=== PATIENT | female | born 1995 | race Caucasian/White ===

== ENCOUNTER 2019-10-03 16:18 | Observation (INO) | payer OTHER, SELFPAY ==
[2019-10-03 17:00] VITALS: BP 103/65; PULSE 64
[2019-10-03 17:15] VITALS: BP 101/63; PULSE 76
[2019-10-03 17:31] VITALS: BP 108/62; PULSE 70
[2019-10-03 17:45] VITALS: BP 102/71; PULSE 68
[2019-10-03 18:01] VITALS: BP 97/60; PULSE 53
[2019-10-03 18:27] VITALS: BMI 26.9
--- NOTE | 2019-10-10 10:00 | PM.OBTRLD ---
OB - Triage/Final Diagnosis Final Diagnosis (1) uterine contractions in second trimester, antepartum: Code(s): O47.02 - False labor before 37 completed weeks of gestation, second trimester Status: Acute
== END 2019-10-03 18:05 | disposition home or self-care (01) ==
PROVIDERS: Admitting Provider Obstetrics & Gynecology; Visit Provider Obstetrics & Gynecology
DX: O47.03 False labor before 37 completed weeks of gestation, third trimester (principal); Z3A.29 29 weeks gestation of pregnancy
CPT/HCPCS: G0378; G0379

== ENCOUNTER 2019-10-17 11:20 | Observation (INO) | payer OTHER, SELFPAY ==
[2019-10-17 11:45] VITALS: BP 103/61; PULSE 64
[2019-10-17 12:00] VITALS: BP 107/69; PULSE 69
[2019-10-17 12:15] VITALS: BP 105/67; PULSE 70
--- NOTE | 2019-10-17 12:29 | PM.OBTRLD ---
OB - Triage/Final Diagnosis Evaluation Baseline heart rate: 140 Variability: Average (6-10) monitor accelerations: Present monitor decelerations: None Vital signs: Vital Signs - 24 hr 10/17/19 11:45 10/17/19 12:00 10/17/19 12:15 Pulse Rate 64 69 70 Blood Pressure 103/61 107/69 105/67 Final Diagnosis (1) uterine contractions in second trimester, antepartum: Code(s): O47.02 - False labor before 37 completed weeks of gestation, second trimester Status: Acute Plan: no contractions noted on TOCO; and pt reports they have subsided. Will avoid manipulating cervix (known to be 2/L/OOP, ~ 2-4wks ago), no discharge, bleeding, or vaginal pressure. Pt once again counseled on importance of PO hydration and avoiding sexual intercourse.
[2019-10-17 12:30] VITALS: BP 104/65; PULSE 63
--- NOTE | 2019-10-17 12:31 | PC.NURSE ---
Dr Thibodeaux notified of adm c/o contractions at 31 weeks and no contractions noted on monitor and that patient feels like they have went away. OK to dc home.
[2019-10-17 12:45] VITALS: BP 110/59; PULSE 68
[2019-10-17 12:48] VITALS: BMI 26.9
== END 2019-10-17 12:50 | disposition home or self-care (01) ==
PROVIDERS: Admitting Provider Obstetrics & Gynecology; Visit Provider Obstetrics & Gynecology
DX: O60.03 Preterm labor without delivery, third trimester (principal); Z3A.31 31 weeks gestation of pregnancy
CPT/HCPCS: G0378; G0379

== ENCOUNTER 2019-11-10 16:16 | Outpatient (RCR) | payer OTHER, SELFPAY ==
--- NOTE | ~2019-11-10 | US_ITS ---
EXAMINATION: US OB limited w BPP DATE: 11/10/2019 17:37 INDICATION: Increased heart rate in office. Third trimester. TECHNIQUE: Real-time pelvic ultrasound was performed. COMPARISON: None. FINDINGS: There is a single living fetus in vertex presentation. The placenta is posterior. heart rate i s 138 beats per minute (bpm). The amniotic fluid index is 24.3 cm, which is normal. Biophysical profile performed by the technologist: breathing (30 sec sustained breathing in 30 minutes): 2 out of 2 movement (3 gross body movements in 30 minutes): 2 out of 2 tone (one episode of xjewgid-bqcwgnwqt-mpjbycp limb movement): 2 out of 2 Amniotic fluid pocket (2 cm): 2 out of 2 Total score: 8 out of 8 IMPRESSION: 1. Single living fetus in vertex presentation. 2. Biophysical profile 8 out of 8. Reviewed, dictated and finalized at location A.
[2019-11-10 18:01] VITALS: BP 106/66; PULSE 98
== END 2019-12-15 07:41 | disposition home or self-care (01) ==
LOC: ANHOBOP 16:16
PROVIDERS: Visit Provider Obstetrics & Gynecology
DX: O36.8330 Maternal care for abnormalities of the fetal heart rate or rhythm, third trimester, not applicable or unspecified (principal); Z3A.34 34 weeks gestation of pregnancy
CPT/HCPCS: 59025; 76815; 76819

== ENCOUNTER 2019-11-28 10:03 | Outpatient (CLI) | payer OTHER, SELFPAY ==
[2019-11-28 10:25] VITALS: BMI 27.6
--- NOTE | 2019-11-28 10:51 | OBADM ---
This patient, Luh Clarke, admitted to the OB room Labor/Delivery/Recovery 106 for rule out rupture of membranes. Patient oriented to hospital policies and general routines including ID bracelet, bed and alarms, visiting hours, pain management, procedures, bathroom and other care routines, personal items, smoking policy, room service/diet, call light, and visiting hours. Patient is encouraged to report perceived risks to care and to ask questions if she does not understand what she is told or what she should do.
[2019-11-28 11:01] VITALS: BP 103/67; PULSE 69
--- NOTE | 2019-11-28 11:31 | P.PNOB_ITS ---
OB - Triage/Final Diagnosis Evaluation Vital signs: Vital Signs - 24 hr 11/28/19 11:01 Pulse Rate 69 Blood Pressure 103/67 Final Diagnosis (1) Vaginal discharge during : Qualifiers: Trimester: third trimester Qualified Code(s): O26.893 - Other specified related conditions, third trimester; N89.8 - Other specified sweetie nflammatory disorders of vagina Code(s): O26.899 - Other specified related conditions, unspecified trimester; N89.8 - Other specified noninflammatory disorders of vagina Status: Acute Plan: ROM + negative
== END 2019-11-28 11:07 | disposition home or self-care (01) ==
LOC: ANHOBOP 10:24 → ANHLDR 10:25
PROVIDERS: Visit Provider Obstetrics & Gynecology
DX: O26.893 Other specified pregnancy related conditions, third trimester (principal); N89.8 Other specified noninflammatory disorders of vagina
CPT/HCPCS: 59025; 99199

== ENCOUNTER 2019-12-01 14:32 | Observation (INO) | payer OTHER, SELFPAY ==
[2019-12-01 14:45] VITALS: BP 119/75; PULSE 84; BMI 26.9
[2019-12-01 15:00] VITALS: BP 119/64; PULSE 105
[2019-12-01 15:15] VITALS: BP 113/85; PULSE 77
[2019-12-01 15:30] VITALS: BP 119/74; PULSE 73
[2019-12-01 15:44] VITALS: TEMP 36.8
--- NOTE | 2019-12-01 17:08 | OBADM ---
This patient, Luh Clarke, admitted to the OB room Labor/Delivery/Recovery 106 for observation. Patient/family oriented to hospital policies and general routines including ID bracelet, bed and alarms, visiting hours, pain management, procedures, bathroom and other care routines, personal items, smoking policy, room service/diet, and visiting hours. Patient/Family are encouraged to report perceived risks to care and to ask questions if they do not understand what they are told or what they should do.
--- NOTE | 2019-12-13 11:07 | PM.OBTRLD ---
OB - Triage/Final Diagnosis Final Diagnosis (1) False labor: Code(s): O47.9 - False labor, unspecified Status: Acute
--- NOTE | 2019-12-13 11:09 | P.DS_ITS ---
DS: Admitting Diagnosis Admitting Diagnosis Admitting Diagnosis: CONTRACTIONS DS: Discharge Diagnosis Discharge Diagnosis (1) Normal vaginal delivery of second : Code(s): O80 - Encounter for full-term uncomplicated delivery Status: Acute OB - DS: Summary OB Procedures : None OB Procedures Intrapartum: Spontaneous Vag Delivery OB Procedures: : None Peripartum Data Delivery Method: Natural Vaginal Episiotomy description: None complications: none 1: Gender: Female Disposition of : home Status at Discharge Functional status at discharge: independent ambulation Overall status at discharge: patient is back to baseline Time Spent with Patient Time attestation: Total time spent providing and/or coordinating discharge services: Exam Const: General: comfortable, no acute distress, alert and awake Orientation/consciousness: patient oriented x3 Resp: Effort & Inspection: normal respiratory effort Cardio: Rate: regular rate GI: Inspection: non-distended GI Palp: Yes Soft to palpation and No Tenderness to palpation present (GI) Psych: Appearance: grossly normal Affect: normal affect Attitude: cooperative Judgement: Good judgement present (Psych) Discharge Plan Discharge Attending physician on discharge: Ching Thibodeaux Discharging Clinician: Ching Thibodeaux Anticipated Discharge Date/Time: 12/01/19 17:15 Patient Disposition: Home, Self-Care Activity: as tolerated Diet: as tolerated and regular Stand Alone Forms: General Discharge Information Follow-up/Referrals: Ching Thibodeaux MD [Physician] - Discharge Medications: Continued sertraline 50 mg tablet 50 mg PO HS RF: 0 PNV cmb#95-ferrous fumarate-FA [] 28 mg iron- 800 mcg tablet 1 tablet PO DAILY RF: 0 No Action acetaminophen [Mapap (acetaminophen)] 325 mg Tablet 650 mg PO Q6H PRN (Reason: Mild Pain (1-3) Or Headache) 10 Days Qty: 40 RF: 0 ibuprofen 600 mg Tablet 600 mg PO Q6H PRN (Reason: Cramping) 10 Days Qty: 40 RF: 0 sertraline [Zoloft] 50 mg Tablet 50 mg PO HS 30 Days Qty: 30 RF: 2 Date of admission: 12/01/19 14:32 Primary Care Provider: PHYSICIAN,SCANNING MANAGER Admitting Provider: Ching Thibodeaux Discharge Date/Time: 12/01/19 17:20 Attending physician on admission: Ching Thibodeaux
== END 2019-12-01 17:20 | disposition home or self-care (01) ==
PROVIDERS: Admitting Provider Obstetrics & Gynecology; Visit Provider Obstetrics & Gynecology
DX: O60.00 Preterm labor without delivery, unspecified trimester (principal); Z3A.00 Weeks of gestation of pregnancy not specified
CPT/HCPCS: G0378; G0379

== ENCOUNTER 2019-12-02 10:14 | Inpatient (IN) | payer OTHER, SELFPAY ==
[2019-12-02] VITALS (49 sets, daily range): BP systolic 70–194; BP diastolic 46–174; PULSE 51–187; RESP 14–16; TEMP 36.2–36.9; O2SAT 95–100; BMI 26.9
[2019-12-02 10:42] LABS: Basophils Absolute Auto 0.1 K/mm3 (0.0-0.1); Basophils Percent Auto 0.3 % (0.2-1.2); Eosinophils Absolute Auto 0.1 K/mm3 (0-0.3); Eosinophils Percent Auto 0.3 % (0-4.4); Hematocrit 40.4 % (37.0-47.0); Immature Granulocyte Absolute 0.07 K/mm3 (0.00-0.031); Immature Granulocyte Percent A 0.4 % (0-0.5); Lymphocytes Absolute Auto 3.31 K/mm3 (0.9-3.2); Lymphocytes Percent Auto 18.2 % (18.3-44.2); Mean Corpuscular HGB Conc 34.7 g/dl (32-36); Mean Corpuscular Hemoglobin 31.1 pg (26-34); Mean Corpuscular Volume 89.8 fl (80-100); Mean Platelet Volume 11.2 fl (7.4-10.4); Monocytes Absolute Auto 0.9 K/mm3 (0.1-0.6); Monocytes Percent Auto 5.2 % (2.6-8.5); Neutrophils Absolute Auto 13.8 K/mm3 (1.3-6.7); Neutrophils Percent Auto 75.6 % (45.5-73.1); Platelet Count Result 197 k/mm3 (150-375); Red Cell Distribution Width 12.7 % (11.5-14.5); White Blood Count 18.2 K/mm3 (4.5-10.0)
[2019-12-02] MEDS: ONDANSETRON INJ 4 MG/2 ML VIAL IV PUSH (10:44)
[2019-12-02] MEDS: LACTATED RINGERS 1,000 ML 125 ML IV CONT (11:15)
--- NOTE | 2019-12-02 11:48 | PM.IMHP ---
H&P: HPI History of Present Illness Date/Time: 12/02/19 11:48 Chief complaint: Pre-admit Narrative: Luh Clarke is a 24 yo @ 38.0wks who presented in labor with painful contractions and was found to be 6cm. Good movement. No bleeding or leakage of fluid. Her has been complicated by: - Short interval - MJ use during Review of Systems Constitutional: Constitutional: Denies body ache(s) and Denies fatigue Eyes: Eyes: Denies blurry vision Cardiovascular: Cardiovascular: Denies chest pain and Denies palpitations Respiratory: Respiratory: Denies cough and Denies dyspnea Gastrointestinal: Gastrointestinal: Reports abdominal pain (contractions), Denies nausea and Denies vomiting Genitourinary: Genitourinary: Denies vaginal discharge Neurologic: Denies headache(s) Psychiatric: Psychiatric: Denies anxiety and Denies depression [facility] Family History Family History Other Unknown family medical history Social History Social History Substance use: current Spiritual care concerns: No Meds Home Medications and Allergies Home Medications Medication Instructions Recorded Confirmed Type PNV cmb#95-ferrous fumarate-FA 1 tablet PO DAILY 11/10/19 11/10/19 History [] sertraline 50 mg PO HS 11/10/19 11/10/19 History Allergies Allergy/AdvReac Type Severity Reaction Status Date / Time No Known Allergies Allergy Verified 11/10/19 16:56 Vital Signs Vital Signs - 24 hr 12/02/19 10:38 12/02/19 10:49 12/02/19 10:50 Pulse Rate 156 H 74 Blood Pressure 194/174 H 119/91 H Pulse Oximetry 100 12/02/19 10:54 12/02/19 10:59 12/02/19 11:03 Pulse Rate Blood Pressure 122/88 Pulse Oximetry 100 100 12/02/19 11:04 12/02/19 11:05 12/02/19 11:07 Pulse Rate 61 95 Blood Pressure 95/63 L 94/59 L Pulse Oximetry 100 12/02/19 11:09 12/02/19 11:11 12/02/19 11:13 Pulse Rate 68 62 111 H Blood Pressure 102/60 94/78 L 100/68 Pulse Oximetry 100 12/02/19 11:14 12/02/19 11:15 12/02/19 11:17 Pulse Rate 69 70 Blood Pressure 101/61 98/56 L Pulse Oximetry 99 12/02/19 11:19 12/02/19 11:23 12/02/19 11:24 Pulse Rate 64 68 Blood Pressure 94/46 L 81/53 L Pulse Oximetry 100 97 12/02/19 11:25 12/02/19 11:26 12/02/19 11:29 Pulse Rate 54 L 56 L Blood Pressure 88/52 L 89/50 L Pulse Oximetry 99 12/02/19 11:31 12/02/19 11:34 12/02/19 11:36 Pulse Rate 72 64 Blood Pressure 97/61 L 101/59 L Pulse Oximetry 100 12/02/19 11:39 12/02/19 11:41 12/02/19 11:43 Pulse Rate 53 L Blood Pressure 95/56 L Pulse Oximetry 100 100 Exam Const: General: comfortable and no acute distress Resp: Effort & Inspection: normal respiratory effort Cardio: Rate: regular rate GI: GI Palp: No Tenderness to palpation present (GI) and No Guarding due to palpation present (GI) : Other: FHT: 130's/ mod abimael/ + accels/ no decels - cat 1 TOCO: ctx's q3 min Cervix: 6/90/-1 Presentation: cephalic Membranes: AROM, clear @ 1145 Skin: General skin exam: normal color Neuro: Speech: normal speech Extrem: General: normal to inspection Psych: Mental Status: mental status grossly normal H&P: Results Labs Labs: Short CBC 12/02/19 Range/Units 10:33 WBC 18.2 H (4.5-10.0) K/mm3 Hgb 14.0 (12.0-15.0) g/dL Hct 40.4 (37.0-47.0) % Plt Count 197 (150-375) k/mm3 Assessment and Plan Assessment and plan (1) : Qualifiers: Weeks of gestation: 38 weeks Qualified Code(s): Z3A.38 - 38 weeks gestation of Code(s): Z34.90 - Encounter for supervision of normal , unspecified, unspecified trimester Status: Acute Assessment and Plan: - Admit to L&D, pt in labor - Epidural anesthesia - status reassuring, cat 1; continuous monitoring - GB
[2019-12-02 12:29] LABS: Amphetamine Screen Urine Negative (Negative); Barbiturate Screen Urine Negative (Negative); Benzodiazepines Screen Urine Negative (Negative); Cannabinoid Screen Urine Positive (Negative); Cocaine Screen Urine Negative (Negative); Methadone Screen Urine Negative (Negative); Opiate Screen Urine Negative (Negative); Phencyclidine Screen Urine Negative (Negative)
--- NOTE | 2019-12-02 12:30 | LDADM ---
This patient, Luh Clarke, was admitted to Labor/Delivery/Recovery 105 on 12/02/19 at 10:14. Plans for labor, pain management and were discussed with patient. Patient/family oriented to hospital policies and general routines including ID bracelet, bed and alarms, visiting hours, pain management, procedures, bathroom and other care routines, personal items, smoking policy, room service/diet and guest tray routines, security routines, and visiting hours. Patient/Family are encouraged to report perceived risks to care and to ask questions if they do not understand what they are told or what they should do. See OBIX for further documentation.
[2019-12-02] MEDS: OXYTOCIN 30 UNITS/NS 500 ML 30 UNITS/500 ML BAG 125 UNITS IV CONT ×2 (12:43→14:59)
--- NOTE | 2019-12-02 13:43 | WPDANESEPN ---
Anes - Epidural Procedure Note Date/Time: 12/02/19 13:43 Consent: I have discussed with the patient/family/POA, the placement of an epidural catheter and the use of epidural narcotic/local anesthetic for labor analgesia and/or postoperative pain management, including associated potential risks, benefits, complications and side effects. I have discussed alternative methods of labor analgesia and/or postoperative pain management. The patient/family/POA, understand(s) and wish(es) to proceed with epidural narcotic/local anesthetic for labor analgesia and/or postoperative pain management. Time-Out: A pre-procedural Time-Out was completed immediately before starting the procedure and confirmed: Patient Identification, Site, Procedure, Patient Position and the Availability of Requisite Equipment. Epidural Insertion Note Patient position: sitting Skin prep: chlorhexidine and sterile drape Needle: 18g Tuohy-Schliff Catheter: 20g Unstyleted Technique: Loss of resistance. Level of insertion: L2/3 Catheter skin michael (cm): 13 Length in epidural space (cm): 7 Skin anesthesia: lidocaine 1% Test dose: 1.5% Lidocaine with 1:[id number] Epi, negative for subarachnoid Inj and negative for intravascular Inj Observations: tolerated well Complications: none
--- NOTE | 2019-12-02 14:41 | PM.OBPRVD ---
OB - Delivery Note Procedure Delivery date: 12/02/19 Procedure: Patient progressed to complete dilation and began pushing with good maternal effort. After three contractions, she delivered the head over intact perineum. No nuchal cord was palpated and the shoulders and body delivered without complications. The infant was immediately placed skin to skin and had spontaneous cry. The umbilical cord was then clamped and cut without complications. A segment of the cord was collected for cord gases and the remaining cord blood was collected for typing. With Pitocin running and gentle traction on the umbilical cord the placenta delivered. Mild bleeding was noted and a bimanual massage was performed and good uterine tone was noted. Inspection of the cervix, vagina, and perineum revealed a first-degree vaginal laceration. The vaginal laceration was repaired with 2 0 Vicryl and a U stitch pattern and the laceration was noted be hemostatic. Minimal bleeding was noted and the fundus was palpated firm. All sponge, lap, needle, and instrument counts were correct at the end of the procedure. Mom and baby were left bonding skin is skin in the birthing suite in a stable condition. Induction method: none Delivery augmentation: rupture of membranes and pitocin Delivery monitor: external FHT and external uterine Route of delivery: Laceration description: Vaginal - 1st Degree Delivery repair: vicryl Specimen: No Estimated blood loss (mL): 250 Anesthesia type: Epidural Disposition: floor Baby Date of : 12/02/19 Time of : 14:24 Weeks of gestation at delivery: 38 Infant gender: Female Weight (pounds): 6 Weight (ounces): 4 presentation: vertex Placenta delivery description: Expressed score one minute: 8 score five minutes: 9
[2019-12-02] MEDS: WITCH HAZEL 40 PADS 1 PAD TOPICAL (16:32)
[2019-12-02] MEDS: BENZOCAINE 20% AER SPR (*SP) 56 GM CAN 1 SPRAY TOPICAL (16:32)
[2019-12-02] MEDS: IBUPROFEN 600 MG TABLET PO (18:51)
[2019-12-02] MEDS: SERTRALINE HCL 50 MG TABLET PO (19:07)
[2019-12-02] MEDS: TETANUS,DIPHTHERIA,AC PERTUSSIS ADULT (0.5 ML) BOOSTRIX IM (19:07)
[2019-12-03 04:56] LABS: Hematocrit 35.5 % (37.0-47.0); Hemoglobin 12.1 g/dL (12.0-15.0)
--- NOTE | 2019-12-03 07:14 | WPDANLDPN2 ---
Anes-Prog Note L&D Date/Time: 12/03/19 07:14 Comfortable throughout: labor and delivery Neuraxial method: epidural Neuro status: Neuro function grossly intact. Cardiovascular status: normal Respiratory status: normal Airway patency: baseline Mental status: baseline Post-Op hydration status: normal Vital Signs: Last Vital Signs Temp 36.8 C 12/02/19 19:27 Pulse 69 12/02/19 19:27 Resp 16 12/02/19 19:27 BP 107/54 L 12/02/19 19:27 Pulse Ox 95 12/02/19 19:27 I/O: Intake & Output 12/02/19 12/02/19 12/03/19 15:59 23:59 07:59 Intake Total 500 Output Total 100 Balance 500 -100 Post-procedural complaints: none Patient feedback: Patient satisfied with anesthetic care.
[2019-12-03 09:50] VITALS: BP 119/74; PULSE 58; RESP 12; TEMP 36.7; O2SAT 98
--- NOTE | 2019-12-03 11:32 | P.PNOB_ITS ---
OB - PN: Subj Subjective Date/time seen: 12/03/19 11:32 PPD#1 Luh is doing well this morning. She reports her pain is controlled w/ PO pain meds. She is tolerating regular diet. She is ambulating w/o s/sx of anemia. She is voiding and passing flatus. Her bleeding is light. She is bottle feeding. She would like to go home today, but the shade cutter would like to keep Chantale overnight to make sure she's feeding better. She would like a depo-provera shot before being discharged. No ROBERTS, vision changes, CP, SOB, N/V, dizziness, palpitations, fever or chills. OB - PN: Obj Data Labs CBC & Chem 7: 12/03/19 04:28 Labs: Laboratory Results - last 24 hr 12/02/19 12/02/19 12/03/19 10:33 12:00 04:28 Hgb 12.1 Hct 35.5 L Urine Opiates Screen Negative Urine Methadone Screen Negative Ur Barbiturates Screen Negative Ur Phencyclidine Scrn Negative Ur Amphetamine Screen Negative U Benzodiazepines Scrn Negative Urine Cocaine Screen Negative U Cannabinoids Screen Positive A Blood Type A Positive Antibody Screen Negative OB - PN A/P Assessment and Plan (1) Normal vaginal delivery of second : Code(s): O80 - Encounter for full-term uncomplicated delivery Status: Acute Plan day: 1 Plan: routine care, discharge home (tomorrow.) and other (ER return precautions discussed in detail. F/u in clinic in 4 weeks. ) Time Spent With Patient Time: Total time spent is greater than 50% in coordination of care (as documented) at patient's floor/unit and/or counseling patient: Review of Systems Review of Systems: All systems reviewed & are unremarkable except as noted in HPI and below (HPI) Exam Const: General: comfortable, no acute distress, alert and awake Orientation/consciousness: patient oriented x3 Resp: Effort & Inspection: normal respiratory effort Auscultation: clear to auscultation bilaterally Cardio: Rate: regular rate GI: Auscultation: normal bowel sounds Other: non-distended, soft, non- tender : Other: fundus firm below umbilicus Psych: Appearance: grossly normal Affect: normal affect Attitude: cooperative Judgement: Good judgement present (Psych)
[2019-12-03] MEDS: SERTRALINE HCL 50 MG TABLET PO (19:27)
[2019-12-03] MEDS: IBUPROFEN 600 MG TABLET PO (19:28)
[2019-12-03 19:55] VITALS: BP 128/87; PULSE 60; RESP 16; TEMP 36.7; O2SAT 100
[2019-12-04 09:18] VITALS: BP 118/84; PULSE 53; RESP 18; TEMP 36.5; O2SAT 100
[2019-12-04] MEDS: ACETAMINOPHEN 325 MG TABLET 650 MG PO (09:18)
[2019-12-04] MEDS: DOCUSATE SODIUM 100 MG CAPSULE PO (09:18)
[2019-12-04] MEDS: IBUPROFEN 600 MG TABLET PO (09:19)
--- NOTE | 2019-12-04 09:30 | PC.NURSE ---
PT introductions made and plan of care discussed per post , pain management, bottle feeding, daily care activities and pending discharge to home. PT verbalized understanding of such care.
--- NOTE | 2019-12-04 10:45 | PC.NURSE ---
PT received discharge instructions per protocol and verbalized understanding of such instructions.
[2019-12-04] MEDS: medroxyPROGESTERone ACETATE IM 150 MG/ML SYR IM (11:33)
--- NOTE | 2019-12-04 11:35 | PC.NURSE ---
PT discharged to home ambulatory accompanied by spouse and and taken to waiting car. Follow up appts confirmed
[2019-12-05 09:41] VITALS: BP 115/82; PULSE 57; RESP 20; TEMP 36.4
[2019-12-05 10:02] LABS: Rapid Plasma Reagin Non-Reactive (NonReactive)
--- NOTE | 2019-12-13 11:10 | DS_ITS ---
This report was moved to the correct visit, [id number] on 12/14/19. Original report was signed by Dr. Ching Thibodeaux on 12/13/19 at 1110. DS: Admitting Diagnosis Admitting Diagnosis Admitting Diagnosis: CONTRACTIONS DS: Discharge Diagnosis Discharge Diagnosis (1) Normal vaginal delivery of second : Code(s): O80 - Encounter for full-term uncomplicated delivery Status: Acute OB - DS: Summary OB Procedures : None OB Procedures Intrapartum: Spontaneous Vag Delivery OB Procedures: : None Peripartum Data Infant Delivery Method: Natural Vaginal Episiotomy description: None complications: none 1: Gender: Female Disposition of : home Status at Discharge Functional status at discharge: independent ambulation Overall status at discharge: patient is back to baseline Time Spent with Patient Time attestation: Total time spent providing and/or coordinating discharge services: Exam Const: General: comfortable, no acute distress, alert and awake Orientation/consciousness: patient oriented x3 Resp: Effort & Inspection: normal respiratory effort Cardio: Rate: regular rate GI: Inspection: non-distended GI Palp: Yes Soft to palpation and No Tenderness to palpation present (GI) Psych: Appearance: grossly normal Affect: normal affect Attitude: cooperative Judgement: Good judgement present (Psych) Discharge Plan Discharge Attending physician on discharge: Ching Thibodeaux Discharging Clinician: Ching Thibodeaux Anticipated Discharge Date/Time: 12/01/19 17:15 Patient Disposition: Home, Self-Care Activity: as tolerated Diet: as tolerated and regular Stand Alone Forms: General Discharge Information Follow-up/Referrals: Ching Thibodeaux MD [Physician] - Discharge Medications: Continued sertraline 50 mg tablet 50 mg PO HS RF: 0 PNV cmb#95-ferrous fumarate-FA [] 28 mg iron- 800 mcg tablet 1 tablet PO DAILY RF: 0 No Action acetaminophen [Mapap (acetaminophen)] 325 mg Tablet 650 mg PO Q6H PRN (Reason: Mild Pain (1-3) Or Headache) 10 Days Qty: 40 RF: 0 ibuprofen 600 mg Tablet 600 mg PO Q6H PRN (Reason: Cramping) 10 Days Qty: 40 RF: 0 sertraline [Zoloft] 50 mg Tablet 50 mg PO HS 30 Days Qty: 30 RF: 2 Date of admission: 12/01/19 14:32 Primary Care Provider: PHYSICIAN,LOG OPERATIONS COORDINATOR Admitting Provider: Ching Thibodeaux Discharge Date/Time: 12/01/19 17:20 Attending physician on admission: Ching Thibodeaux Report Initialized date/time: Ching Thibodeaux MD 12/13/19 / 1109 Electronically signed by: Ching Thibodeaux MD 12/13/191109 [facility]
== END 2019-12-04 11:35 | disposition home or self-care (01) | DRG 560 ==
LOC: ANHLDR 15:13 → ANHOB2 17:20
PROVIDERS: Admitting Provider Obstetrics & Gynecology; Visit Provider Obstetrics & Gynecology
DX: O99.324 Drug use complicating childbirth (principal); Z37.0 Single live birth; Z3A.38 38 weeks gestation of pregnancy; F12.90 Cannabis use, unspecified, uncomplicated; O70.0 First degree perineal laceration during delivery; O99.334 Smoking (tobacco) complicating childbirth; F17.210 Nicotine dependence, cigarettes, uncomplicated
CPT/HCPCS: 36415; 80307; 85014; 85018; 85025; 86592; 86850; 86900; 86901; 90715; A9270; J1050; J2405; J2590; J2795; J3010; J7120